=== PATIENT | female | born 1950 | race Caucasian/White ===

== ENCOUNTER 2021-09-22 00:45 | Emergency (ER) | payer BC ==
[~2021-09-22] VITALS: Ht 157.5 cm; Wt 89.0 kg
[2021-09-22 00:54] VITALS: BP 208/84
[2021-09-22] MEDS ORDERED: proparacaine 0.5% ophthalmic drops 15ml EACHEYE ONE (03:15)
[2021-09-22] MEDS ORDERED: ACYC-129 PO (03:23)
[2021-09-22] MEDS ORDERED: dexamethasone sod phosphate 10mg/ml inj PO STA (03:26)
[2021-09-22 04:06] LABS: BASOPHILS % (AUTO) 0.2 % (0-1); EOSINOPHILS % (AUTO) 0.3 % (0-6); HEMATOCRIT 37.3 % (35.0-45.0); HEMOGLOBIN 13.1 g/dl (12.0-16.0); LYMPHOCYTES # (AUTO) 0.9 X10'3 (1.1-4.8); LYMPHOCYTES % (AUTO) 14.8 % (21-51); MEAN CORPUSCULAR HEMOGLOBIN 32.9 PG (27.0-31.0); MEAN CORPUSCULAR HGB CONC 35.1 g/dL (33.0-36.5); MEAN CORPUSCULAR VOLUME 93.7 FL (78-98); MEAN PLATELET VOLUME 8.2 FL (7.4-10.4); MONOCYTES # (AUTO) 0.4 X10'3 (0-0.9); MONOCYTES % (AUTO) 7.6 % (2-12); NEUTROPHILS # (AUTO) 4.5 X10'3 (1.8-7.7); NEUTROPHILS % (AUTO) 77.1 % (42-75); PLATELET COUNT 255 X10'3 (140-440); RED BLOOD COUNT 3.98 X10'6 (4.20-5.60); RED CELL DISTRIBUTION WIDTH 12.2 % (11.5-14.5); WHITE BLOOD COUNT 5.9 X10'3 (4.5-11.0)
[2021-09-22] MEDS ORDERED: HYDR-3965 PO (04:13)
[2021-09-22] MEDS ORDERED: HYDROcodone/acetaminophen 5mg/325mg tablet PO ONE (04:15)
[2021-09-22 04:24] LABS: ALANINE AMINOTRANSFERASE 37 U/L (12-78); ALBUMIN 3.2 G/DL (3.4-5.0); ALBUMIN/GLOBULIN RATIO 0.8 (1.1-1.5); ALKALINE PHOSPHATASE 98 IU/L (46-116); ANION GAP 11 (8-16); ASPARTATE AMINO TRANSFERASE 32 U/L (10-37); BILIRUBIN,TOTAL 0.5 MG/DL (0.1-1.0); BLOOD UREA NITROGEN 17 MG/DL (7-18); CALCIUM 9.4 MG/DL (8.5-10.1); CHLORIDE 106 MMOL/L (99-107); CREATININE 0.85 MG/DL (0.40-0.90); GLUCOSE 105 MG/DL (70-104); POTASSIUM 4.1 MMOL/L (3.5-5.1); SODIUM 142 MMOL/L (135-145); TOTAL CARBON DIOXIDE 24.6 MMOL/L (24-32); TOTAL PROTEIN 7.2 G/DL (6.4-8.2); eGFR 66 ML/MIN
== END 2021-09-22 05:29 | disposition home or self-care (01) ==
LOC: ER 00:45
DX: B02.9 Zoster without complications (principal); B02.8 Zoster with other complications; R21 Rash and other nonspecific skin eruption; Z98.890 Other specified postprocedural states; Z88.2 Allergy status to sulfonamides; Z79.2 Long term (current) use of antibiotics
CPT/HCPCS: 36415; 80053; 85025; 99284; J1100

== ENCOUNTER 2023-02-14 11:49 | Emergency (ER) | payer BC ==
[~2023-02-14] VITALS: Ht 157.5 cm; Wt 89.5 kg
--- NOTE | 2023-02-14 13:09 | NUR ---
[facility] ON THE WAY
--- NOTE | 2023-02-14 14:53 | NUR ---
JOSEY Frye was notified about patient's high BP (i.e., SBP >200) She said she will put an order for BP meds. Awaiting for her order at this time.
[2023-02-14] MEDS ORDERED: cloNIDine 0.1 mg tablet PO ONE (15:05)
[2023-02-14 15:28] VITALS: BP 236/131
--- NOTE | 2023-02-14 15:55 | NUR ---
clonidine 0.2 mg PO given. Patient was advised to see her PCP hammad for further management of her BP and to follow up with [facility] as scheduled
== END 2023-02-14 15:58 | disposition home or self-care (01) ==
LOC: ER 11:50
DX: M25.562 Pain in left knee (principal); Z98.890 Other specified postprocedural states; Z88.2 Allergy status to sulfonamides
CPT/HCPCS: 73564; 93971; 99284; A6449